=== PATIENT | male | born 1965 | race Caucasian/White ===

== ENCOUNTER → 2019-01-24 12:02 | Outpatient (CLI) | payer OTHER, SELFPAY ==
--- NOTE | 2019-01-24 | DI.RAD.S_ITS ---
PROCEDURE: XR CHEST 2V INDICATIONS: SCREENING FOR PULMONARY DISEASES FOR EMPLOYMENT TECHNIQUE: 2 views of the chest were acquired. COMPARISON: [facility], , CHEST 2 VIEW, 11/15/2010, 13:11. FINDINGS: Surgical changes and devices: None. Lungs and pleura: No acute consolidation or 7 mm nodular opacity projects in the left lung base, indeterminate although this appears new since the prior study from 11/15/10. No pleural effusions or pneumothorax. Mediastinum: Mediastinal contours are normal. Heart size is normal. Bones and chest wall: No suspicious bony abnormalities. Soft tissues appear unremarkable. IMPRESSION: Indeterminate nodular opacity projects in the left lung base, new since the prior study. Cannot exclude early metastatic or malignant pulmonary nodule. Recommend further evaluation with noncontrast chest CT as clinically warranted, or at clinical discretion, followup three-month PA and lateral chest radiographs could be performed. No acute disease. Dictated by: Nicola Bhatia M.D. on 01/24/2019 at 13:20 Approved by: Nicola Bhatia M.D. on 01/24/2019 at 13:23
== END ==
PROVIDERS: Visit Provider Family Medicine
DX: Z02.1 Encounter for pre-employment examination (principal)
CPT/HCPCS: 71046

== ENCOUNTER → 2019-01-28 12:13 | Outpatient (CLI) | payer OTHER, SELFPAY ==
--- NOTE | 2019-01-28 | DI.CT.S_ITS ---
PROCEDURE: CT CHEST WO CON INDICATIONS: Solitary pulmonary nodule TECHNIQUE: Noncontrast 2.0-2.5 mm thick sections acquired from the pulmonary apices to the posterior costophrenic angles. 7 mm thick coronal and sagittal MIP reformats were then acquired. A low radiation dose technique was utilized. COMPARISON: [facility], CR, XR CHEST 2V, 01/24/2019, 12:05. FINDINGS: Image quality: Diagnostic, given the low radiation dose technique. Lungs and pleura: No acute consolidation. No pleural effusion or pneumothorax. No correlate to correspond with the nodular opacity from the prior radiograph dated 01/24/19. This appears to be in incorrect position for nipple shadow although that remains in the differential. Mediastinum: Heart size is normal. No pericardial effusion. No mediastinal adenopathy by size criteria. Thoracic aorta and central pulmonary arteries are normal in size. Esophagus is normal in caliber. No hiatal hernia. Bones and chest wall: No suspicious bony lesions. No vertebral body compression fractures. No axillary or supraclavicular adenopathy by size criteria. Thyroid gland unremarkable. Abdomen: Visualized upper abdomen solid organs and bowel loops appear normal in the absence of contrast. IMPRESSION: No definite pulmonary nodule. No correlate to the radiographic appearance from prior study dated 01/24/19 (suggesting the radiographic finding likely artifactual or spurious). Dictated by: Nicola Bhatia M.D. on 01/28/2019 at 15:05 Approved by: Nicola Bhatia M.D. on 01/28/2019 at 15:11
== END ==
PROVIDERS: PCP Family Medicine; Visit Provider Family Medicine
DX: R91.1 Solitary pulmonary nodule (principal)
CPT/HCPCS: 71250

== ENCOUNTER → 2021-05-01 11:08 | Outpatient (CLI) | payer SELFPAY ==
[2021-05-01 11:44] LABS: Urine Drug scr, USCG NIDA See Separate Report
== END ==
DX: Z02.1 Encounter for pre-employment examination (principal)
CPT/HCPCS: 81099

== ENCOUNTER → 2024-03-04 11:48 | Outpatient (CLI) | payer OTHER, SELFPAY | LOC: RESP 11:50 | PROVIDERS: PCP Family Medicine; Referring Provider Family Medicine; Visit Provider Family Medicine | DX: Z02.1 Encounter for pre-employment examination (principal); Y93.15 Activity, underwater diving and snorkeling; R94.2 Abnormal results of pulmonary function studies | CPT/HCPCS: 94060; 94726; 94729 ==